=== PATIENT | female | born 1980 | race Caucasian/White ===

== ENCOUNTER 2018-01-03 16:06 | Outpatient (CLI) | payer SELFPAY ==
--- NOTE | 2018-01-03 18:25 | Diagnostic Imaging Report ---
MIKE HAY [facility] [id number] [facility].[address] [address] Report Submission Date: Jan 03, 2018 4:38:44 PM CDT Patient Study Name: FERNANDA SLOAN Date: Jan 03, 2018 4:16:41 PM CDT Modality Type: DX Gender: F Description: LOWER EXTREMITY : 84 Institution: [facility] Physician: MIKE HAY Examination: Plain film right foot History: RT FOOT, PAIN, SWELLING, CONTUSION, IN AREA OF 4TH AND 5TH METATARSALS AFTER KICKING INJURY YESTERDAY, PT STATES PREVIOUS FX TO 5TH DIGIT ( Hx) Findings: 3 views of the right foot demonstrates faint lucency involving the distal margin of the 4th metatarsal. No other cortical abnormalities. No soft tissue swelling. No joint effusion. Impression: Likely nondisplaced fracture distal margin 4th metatarsal. Electronically signed on Jan 03, 2018 4:38:44 PM CDT by: Honorio RITTER
== END 2018-01-03 16:07 ==
LOC: RAD 16:06
PROVIDERS: ATTEND Family Medicine
DX: M79.671 Pain in right foot (principal)
CPT/HCPCS: 73630